=== PATIENT | male | born 2005 | race Caucasian/White ===

== ENCOUNTER 2024-07-03 13:58 | Emergency (ER) | payer OTHER, SELFPAY ==
[2024-07-03 14:06] VITALS: BP 138/88; PULSE 80; RESP 16; TEMP 37.3; O2SAT 98; BMI 20.4
--- NOTE | 2024-07-03 14:48 | ED.WOUNDLAC ---
HPI - Wound/Laceration General Chief Complaint: Laceration/Wound Stated Complaint: L hand deep LAC Time Seen by Provider: 07/03/24 14:01 History of Present Illness HPI narrative: Patient is a 18-year-old young man who [place] when he stumbled catching is left 4th upper extremity digit on some barbed wire. Patient actually fell then [place] and was able climb back out grappling in the dirt. He comes in today with a skin tear/laceration at the PIP digit of the 4th digit left upper extremity well-approximated. He is otherwise uninjured. He has some other scrapes but no other major injuries. He is up-to-date on his tetanus shot. Related Data Home Medications ?Medication ?Instructions ?Recorded ?Confirmed dextroamphetamine-amphetamine 10 10 mg PO DAILY 07/03/24 07/03/24 mg tablet (Adderall) dextroamphetamine-amphetamine ER 15 mg PO DAILY 07/03/24 07/03/24 15 mg 24hr capsule,extend release (Adderall XR) Allergies Allergy/AdvReac Type Severity Reaction Status Date / Time No Known Drug Allergies Allergy Verified 07/03/24 14:05 Review of Systems Status of ROS: Reports: 10 or more systems reviewed and unremarkable except as noted in History and below Exam Narrative: Exam Narrative: EXAM GENERAL: Patient appears comfortable and well. EYES: No scleral icterus. LYMPH: No supraclavicular or cervical lymphadenopathy. SKIN: Skin tear approximately 3 cm in length in a V-shape on the palmar surface PIP 4th digit left upper extremity. EXT: No dependent lower extremity pedal edema. HEART: Regular rate and rhythm with no murmurs, rubs, or gallops. LUNGS: Clear to auscultation bilaterally with no crackles or wheezes. ABD: Soft, non tender, non distended. PSYCH: Good eye contact, speech is not pressured. Const: Vital Signs, click to edit/add: Vital Signs - 24 hr 07/03/24 14:06 Temperature 99.1 F Pulse Rate [Pulse Oximeter] 80 Respiratory Rate 16 Blood Pressure [Ri ght Upper Arm] 138/88 Pulse Oximetry 98 Oxygen Delivery Me thod Room Air Course Course ED Course: Patient seen examined. Wound was aggressively irrigated. Digital block was performed on the 4th digit left upper extremity. I then closed the defect with 4 running 3-0 Ethilon sutures. Will be placing the patient on Augmentin for the next 7 days. I recommended good wound care and follow-up as needed suture removal in approximately 10 days. Vital Signs Vital signs: Initial Vital Signs Temperature 99.1 F 07/03/24 14:06 Temperature Source Temporal Artery Scan 07/03/24 14:06 Pulse Rate 80 07/03/24 14:06 Respiratory Rate 16 07/03/24 14:06 Blood Pressure 138/88 07/03/24 14:06 Blood Pressure Mean 104 07/03/24 14:06 Pulse Oximetry 98 07/03/24 14:06 Oxygen Delivery Method Room Air 07/03/24 14:06 Vital Signs Temperature 99.1 F 07/03/24 14:06 Pulse Rate 80 07/03/24 14:06 Respiratory Rate 16 07/03/24 14:06 Blood Pressure 138/88 07/03/24 14:06 Pulse Oximetry 98 07/03/24 14:06 Oxygen Delivery Method Room Air 07/03/24 14:06 Temperature 99.1 F 07/03/24 14:06 Pulse Rate 80 07/03/24 14:06 Respiratory Rate 16 07/03/24 14:06 Blood Pressure 138/88 07/03/24 14:06 Pulse Oximetry 98 07/03/24 14:06 Oxygen Delivery Method Room Air 07/03/24 14:06 Discharge Plan Discharge Clinical Impression: Laceration Patient Disposition: Home, Self-Care Condition: Stable Instructions: Laceration (ED) Additional Instructions: Augmentin as directed Good wound care with daily dressing changes. Sutures removed in approximately 10 days. Tylenol Motrin Activity Level: No Restrictions Discharge Diet: Regular Prescriptions: No Action dextroamphetamine-amphetamine [Adderall] 10 mg tablet 10 mg PO DAILY dextroamphetamine-amphetamine [Adderall XR] 15 mg capsule,extended release 24hr 15 mg PO DAILY Stand Alone Forms: [facility] Info Instructions
--- OUTSIDE RECORDS SUMMARY | 2024-07-04 17:27 | XMS_ITS | Data Portability ---
Author Organization [facility] Address [address] [place] [address] Care Team Providers Care Insurance Agents Supervisor Name Role Phone GENESIS ALCANTAR Primary Care Provider Assessment No assessment recorded. Plan of Treatment Reminders Order Date Submit Date Provider Last Modified By Organization Details Last Modified Time Details Appointments None recorded. Lab urinalysis , dipstick 2023 024 [facility], [address], [address], [place], [address], 15:30:41 Referral None recorded. Procedures None recorded. Surgeries None recorded. Imaging None recorded. Medication Orders None recorded. Patient TargetsNo targets recorded. Patient Instructions Encounter Date Encounter Id Patient Instructions Last Modified By Organization Details Last Modified Time 08/14/2023 [id number] Hematuria is the setting of perineal trauma last month. He is healing, occ dysuria Cystoscopy shows normal exam and urethra. We spoke about possible long-term issues of stricture/scar formation. He is to come back for any hematuria, poor stream, incomplete emptying, worsening dysuria. Otherwise no specific follow-up is needed. [email or web address] Not available 08/14/2023 11:57:08 Reason for Referral None Reported. Results Created Date Observation Date Name Description Value Unit Range Abnormal Flag Note LastModifiedBy Organization Detail LastModifiedTime 08/14/19 24 08/14/2023 [facility] WITHO UT MICRO COON RAPID S color-status YELLOW yellow Not Available [facility] [address], [place], [address], 08/14/2023 15:30:41 08/14/19 24 08/14/2023 UA WITHO UT MICRO COON RAPID S clarity-stat us CLEAR clear Not Available [facility] [address], [place], [address], 08/14/2023 15:30:41 08/14/19 24 08/14/2023 UA WITHO UT MICRO COON RAPID S glucose-stat us NEGATI VE mg/dL negati ve Not Available [facility] [address] [place] [address], [place], [address], 08/14/2023 15:30:41 08/14/19 24 08/14/2023 UA WITHO UT MICRO COON RAPID S bilirubin-ur ine NEGATI VE negati ve Not Available [facility] [address] [place] [address], [place], [address], 08/14/2023 15:30:41 08/14/19 24 08/14/2023 UA WITHO UT MICRO COON RAPID S ketones-stat us NEGATI VE mg/dL negati ve Not Available [facility] [address] [place] [address], [place], [address], 08/14/2023 15:30:41 08/14/19 24 08/14/2023 UA WITHO UT MICRO COON RAPID S SG-status 1.030 1.00-1 .[address] [facility] [address] [place] [address], [place], [address], 08/14/2023 15:30:41 08/14/19 24 08/14/2023 UA WITHO UT MICRO COON RAPID S pH-status 5.5 5.00-8 .[address] [facility] [address] [place] [address], [place], [address], 08/14/2023 15:30:41 08/14/19 24 08/14/2023 UA WITHO UT MICRO COON RAPID S protein-stat us NEGATI VE mg/dL negati ve Not Available [facility] [address], [place], [address], 08/14/2023 15:30:41 08/14/19 24 08/14/2023 UA WITHO UT MICRO COON RAPID S urobilinogen -status 0.2 E.U./D L E.U./ dL 0.2 E.U./d L Not Available [facility] [address] [place] [address] [address], [place], [address], 08/14/2023 15:30:41 08/14/19 24 08/14/2023 UA WITHO UT MICRO COON RAPID S nitrites-sta tus NEGATI VE negati ve Not Available [facility] [address] [place] [address], [place], [address], 08/14/2023 15:30:41 08/14/19 24 08/14/2023 UA WITHO UT MICRO COON RAPID S blood-urine NEGATI VE negati ve Not Available [facility] [address] [place] [address], [place], [address], 08/14/2023 15:30:41 08/14/19 24 08/14/2023 UA WITHO UT MICRO COON RAPID S leuko-status NEGATI VE negati ve Not Available [facility] [address] [place] [address], [place], [address], 08/14/2023 15:30:41 08/14/19 24 08/14/2023 UA WITHO UT MICRO COON RAPID S specimen type VOIDED Not Available [facility] [address] [place] [address], [place], [address], 08/14/2023 15:30:41 08/14/19 24 08/14/2023 UA WITHO UT MICRO COON RAPID S performed by ROSE MARIE Kent Not Available [facility] [address] [place] [address], [place], [address], 08/14/2023 15:30:41 08/14/19 24 08/14/2023 UA WITHO UT MICRO COON RAPID S total urine volume (mL) 30 /mL ----- ----- ----- ----- ----- ----- ----- ----- ----- ----- ----- ----- ----- ----- ---- *Plejessica benavides note the follo wing minim um quant ities for addit ional urine testi ng: - Atypi cals: 3 mL - Cytol ogy: 20 mL - GC/CH : 2 mL - FISH: 30 mL - Atypi cals w/ GC/CH : 5 mL - Cytol ogy PLUS FISH: 50 mL - Urine Cultu re: 3 mL ----- ----- ----- ----- ----- ----- ----- ----- ----- ----- ----- ----- ----- ----- ---- This lab resul t is being provi ded to you and your provi gera at the same time in compl iance with the Centu ry Cures Act. Your provi gera may not have had time to revie w and make recom menda tions based on the resul t. [place] muniz allow up to one week for provi gera revie w. Not Available [facility] [address] [place] [address] [address], [place], [address], 08/14/2023 15:30:41 Result Notes None recorded. Problems No Known Problems Procedures Surgical History Date Name Laterality Status Provider Name and Address Organization Details Recorded Time 08/14/2023 Cystoscopy - male completed Tho Salgado MD [address], [place], [address], [facility] 08/14/2023 11:56:08 Imaging Results None recorded. Procedure Notes None recorded. Medical Equipment None Reported. Allergies No known drug allergies Medications Name Sig Start Date Stop Date Status Note LastModified by Organization Details LastModified Time cephalexin 250 mg capsule TAKE 3 CAPSULES BY MOUTH TWICE DAILY FOR 10 DAYS 08/13 completed Not Available Not Available Not Available dextroamphe tamine-amph etamine 10 mg tablet TAKE 1 TABLET BY MOUTH IN THE AFTERNOON active Not Available Not Available No t Available doxycycline hyclate 100 mg tablet TAKE 1 TABLET (100MG) BY ORAL ROUTE 2 TIMES PER DAY FOR 10 DAYS 08/13 completed Not Available Not Available Not Available Adderall XR 15 mg capsule,ext ended release 15mg 1/day active Not Available Not Available No t Available Vitals Date Recorded Body height Body weight Body mass index (BMI) Provider Name and Address Organization Details Last Updated DateTime 08/14/2023 177.8 cm 94400.27880 25759 g 20.9 kg/m2 Not Available Health Note 08/14/2023 11:00:36 Social History Question Answer Notes LastModified by Organizat ion Details LastModified Time Tobacco Smoking Status Never Smoker Not Available Health Note 08/14/2023 10:58:08 What Is Your Level Of Caffeine Consumption? Occasional [email or web address] Information not available 08/14/2023 How Much Tobacco Do You Chew? None [email or web address] Information not available 08/14/2023 What Was The Date Of Your Most Recent Tobacco Screening? 08/14/2023 [email or web address] Information not available 08/14/2023 What Is Your Relationship Status? Single [email or web address] Information not available 08/14/2023 Are You Sexually Active? Yes [email or web address] Information not available 08/14/2023 How Many Days In The Past Year Have You Consumed 5 Or More Drinks? 0 [email or web address] Information no t available 08/14/2023 Sex: Unknown Functional Status Question Answer Note LastModified by [employer] Details LastModified Time Do you use any illicit or recreational drugs? No [email or web address] Information not available 08/14/2023 What is your level of alcohol consumption? None [email or web address] Information not available 08/14/2023 Do you or have you ever used smokeless tobacco? Never used smokeless tobacco [email or web address] Information not available 08/14/2023 Do you or have you ever used e-cigarettes or vape? Never used electronic cigarettes [email or web address] Information not available 08/14/2023 Mental Status None recorded. Family History Nothing Reported. Medical History Condition Response High Blood Pressure N Kidney Stones N Depression N Sexually Transmitted Infection N Cancer N Bleeding Disorder N Lung Disease N GERD/Acid Reflux N High Cholesterol N Diabetes N Heart Disease N Immunizations Vaccine Type Date Status Note Provider Nam e and Address Organization Details Recorded Time SARS-COV-2 (COVID-19) vaccine, UNSPECIFIED 3 completed Not Available Health Note 08/14/2023 10:58:11 influenza, unspecified formulation 3 completed Not Available Health Note 08/14/2023 10:58:11 Past Encounters Encounter ID Performer Location Encounter Start Date Encounter Closed Date Diagnosis/Indication Diagnosis SNOMED-CT Code Diagnosis ICD10 Code Diagnosis Note [id number] Tho Salgado MD [facility] [place] [address] [place] [address] 08/14/2023 10:59:21 08/14/2023 12:44:49 Haroon hematuria [id number] R31.0 New Health Concerns Section Related Observation LastModified by Organization Detai ls LastModified Time None Recorded Concern Status LastModified by Organization Details LastModified Time None Recorded Advance Directives Directive None Recorded Payers Insurance Date Sequence Insurance Name Policy Number Policy Tatum Covered Member ID Tatum Member ID Guarantor Name 09/03/2023 1 [facility] [id number] Rosemary Li [id number] Rosemary Li Notes Date Note Type Note Provider Name and Address Organization Details Recorded Time 08/14/2023 text/html 08/14/23: referre d to Urology for perineal trauma from Urgency room, Noted hematuria. He was NOT evaluated by urology at that time.Fell off a michael rack (was walking across them)Perineal bruising, and hematuria. Better nowOcc referred pain in the urethra on initiation of voiding but then goes awayGood stream. Tho Salgado MD [address], [place], [address], [facility] 08/14/2023 11:57:20
--- OUTSIDE RECORDS SUMMARY | 2024-07-04 17:28 | XMS_ITS ---
Author Organization [facility] Address [address] [place] [address] Care Team Providers Care Network Planner Name Role Phone Magda Jacobson Primary Care Provider Anamaria Hamm [phone] REASON FOR VISIT ADHD refill Medications Medication SIG (Take, Route, Fr equency, Duration) Notes Start Date End Date Status Adderall XR 15 MG 1 capsule in the mor krysta Orally Once a day for 90 days 08/12/2023 Active Adderall 10 MG 1 tablet Orally in t he afternoon for 90 days 08/12/2023 Active Encounters Encounter Location Date Provider Diagnosis [address] [address] 08/12/2023 Anamaria Hamm ADHD (attention deficit hyperactivity disorder) F90.9 Assessments Encounter Date Diagnosis (ICD Code) Assessment Notes Treatment Notes Treatment Clinical Notes Section Notes 08/12/2023 ADHD (attention deficit hyperactivity disorder) (ICD-10 - F90.9) Plan Of Treatment Medication Medication Name Sig Start Date Stop Date Notes Adderall XR 15 MG 1 capsule in the mor krysta Orally Once a day for 90 days 08/12/2023 Adderall 10 MG 1 tablet Orally in t he afternoon for 90 days 08/12/2023 Progress Notes * Rosemary SARGENT RDOB: [birth year] (17 yo M)Acc No.[id number]:08/12/2023 Patient: Dave Rosemary MOLINA :2005 A ge:17 Y S ex:Male Address:[address] [place], [place] [address], [place] [address] * Refills Refill Adderall XR Capsule Extended Release 24 Hour, 15 MG, Orally, 90, 1 capsule in the morning, Once a day, 90 days, Refills=0 Refill Adderall Tablet, 10 MG, Orally, 90 Tablet, 1 tablet, in the afternoon, 90 days, Refills=0 * true * Date: Generated for Ruben stern/Rosalinda/Cassandra on: 0 07/04/2024 05:28 PM CDT
--- OUTSIDE RECORDS SUMMARY | 2024-07-04 17:29 | XMS_ITS | Patient Health Record ---
Author Organization [facility] Address [address] [place] [address] Care Team Providers Care Tower Loader Operator Name Role Phone Magda Jacobson Primary Care Provider [phone] Anamaria Hamm Unavailable [phone] Stefany Miller Unavailable [phone] Elisabeth Nichols Unavailable [phone] Allergies No Known Allergies Reason For Referral No Information Medications Medication SIG (Take, Route, Frequency, Duration) Notes Start Date End Date Status Adderall XR 15 MG 1 capsule in the mor krysta Orally Once a day for 30 days 10/25/2022 Not-Taking Adderall 10 MG 1 tablet Orally in t he afternoon for 60 days 10/21/2023 Active Adderall XR 15 MG 1 capsule in the mor krysta Orally Once a day for 60 days 10/21/2023 Active Amphetamine-Dextroamphet ER 15 MG 1 capsule in the morning Orally Once a day for 90 days 02/12/2024 Active Adderall XR 15 MG 1 capsule in the mor krysta Orally Once a day for 30 days 11/24/2022 Not-Taking Immunizations Vaccine Route Administration Date Status Comme nts DTaP, under 7 yrs (Infanrix) Unknown 01/24/2006 Administered DTaP-Hep B-Polio vaccine, (Pediarix) Unknown 04/22/2005 Administered DTaP-Hep B-Polio vaccine, (Pediarix) Unknown 07/24/2005 Administered DTaP-IPV vaccine, 4-6 yrs (Kinrix) Unknown 11/28/2009 Administered Flu vaccine (FluLaval), quadrivalent IM Intramuscular 01/19/2019 Administered Flu vaccine (FluLaval), quadrivalent IM Intramuscular 01/04/2020 Administered Flu vaccine (FluLaval), trivalent IM Intramuscular 02/12/2024 Administered Flu vaccine (FluMist) quadrivalent, intranasal Unknown 11/22/2008 Administered Flu vaccine (FluMist) quadrivalent, intranasal NS Nasal 10/30/2020 Administered Flu vaccine (FluMist) quadrivalent, intranasal NS Nasal 11/06/2021 Administered Flu vaccine (FluMist) quadrivalent, intranasal NS Nasal 11/11/2022 Administered Flu vaccine (Fluzone) >3 yrs, quadrivalent Unknown 12/15/2007 Administered Flu vaccine (Fluzone) >3 yrs, quadrivalent Unknown 01/14/2009 Administered Hemophilus B vaccine, (ActHIB) Unknown 2004 Administered Hemophilus B vaccine, (ActHIB) Unknown 04/22/2005 Administered Hemophilus B vaccine, (ActHIB) Unknown 07/24/2005 Administered Hemophilus B vaccine, (ActHIB) Unknown 01/24/2006 Administered Hep B, adolescent or pediatric Unknown 2004 Administered Hepatitis A pediatric, 2-dose (Havrix) Unknown 2005 Administered Hepatitis A pediatric, 2-dose (Havrix) Unknown 06/02/2006 Administered Hepatitis B, vaccine pediatric 3-dose (Engerix-B) Unknown 2004 Administered Human Papilloma Virus, (HPV9) Gardasil 9 IM Intramuscular 11/12/2016 Administered Human Papilloma Virus, (HPV9) Gardasil 9 IM Intramuscular 06/25/2018 Administered Meningococcal, (Menveo) tetravalent IM Intramuscular 11/12/2016 Administered Meningococcal, (Menveo) tetravalent IM Intramuscular 11/11/2022 Administered MMR vaccine, live Unknown 2005 Administered MMR vaccine, live Unknown 11/22/2008 Administered Pneumococcal vaccine, 7 valent (Prevnar 7) Unknown 2004 Administered Pneumococcal vaccine, 7 valent (Prevnar 7) Unknown 2004 Administered Pneumococcal vaccine, 7 valent (Prevnar 7) Unknown 04/22/2005 Administered Pneumococcal vaccine, 7 valent (Prevnar 7) Unknown 04/22/2005 Administered Pneumococcal vaccine, 7 valent (Prevnar 7) Unknown 07/24/2005 Administered Pneumococcal vaccine, 7 valent (Prevnar 7) Unknown 2005 Administered Polio vaccine, (IPOL) Unknown 2004 Administered SARSCOV2 vaccine, (Pfizer) 12-17 original formulation Unknown 06/30/2020 Administered SARSCOV2 vaccine, (Pfizer) 12-17 original formulation Unknown 07/21/2020 Administered Tdap (tetanus diptheria pertussis), over 7 yrs (Boostrix) IM Intramuscular 11/12/2016 Administered Tdap (tetanus diptheria pertussis), over 7 yrs (Boostrix) IM Intramuscular 05/22/2023 Administered Varicella, (Varivax) Unknown 10/12/2012 Administered Varicella, (Varivax) SC Subcutaneous 03/30/2015 Administer ed Problems Problem Type SNOMED Code ICD Code Onset Dates Problem Status W/U Status Risk Notes Problem [id number] ADHD (attention deficit hyperactivity disorder) (F90.9) Active confirmed Vital Signs Heart Rate 102 /min 07/15/2023 Temperature 98.4 degrees Fahrenheit 07/15/2023 Blood pressure diastolic 62 mm Hg 02/12/2024 Weight-kg 66.86 kg 07/15/2023 Blood pressure systolic 130 mm Hg 02/12/2024 Weight 153 lbs 02/12/2024 Encounters Encounter Location Date Provider Diagnosis [address] [address] 07/15/2023 Stefany Miller Urethral injury S37.30XA [address] [address] 02/12/2024 Elisabeth Nichols ADHD (attention deficit hyperactivity disorder) F90.9 and Influenza vaccine needed Z23 [address] [address] 08/12/2023 Anamaria Hamm ADHD (attention deficit hyperactivity disorder) F90.[address] [address] 10/21/2023 Elisabeth Nichols ADHD (attention deficit hyperactivity disorder) F90.9 Assessments Encounter Date Diagnosis (ICD Code) Assessment Notes Treatment Notes Treatment Clinical Notes Section Notes 07/15/2023 Urethral injury (ICD-10 - S37.30XA) Given blood in ejaculate and urine concern for urethral trauma. Recommend Rosemary go to the ED for evaluation this evening- he can choose an adult ED if preferred. 08/12/2023 ADHD (attention deficit hyperactivity disorder) (ICD-10 - F90.9) 10/21/2023 ADHD (attention deficit hyperactivity disorder) (ICD-10 - F90.9) 02/12/2024 ADHD (attention deficit hyperactivity disorder) (ICD-10 - F90.9) 02/12/2024 Influenza vaccine needed (ICD-10 - Z23) 07/15/2023 Other Did you know that a copy of the visit summary is available on the patient portal? You can view this summary as well as test results, immunizations, measurements, and vital signs. You may also message your physician through the patient portal for non-urgent matters. If you need help accessing your portal account please call our office at [phone] [place] or [phone] [place]. Call our office 24 hours a day if you need medical advice from triage staff. If labs were ordered today and not finalized at the time of your visit, they will be visible on the patient portal when they are completed. Reach out to your primary physician if you have questions about these results. Someone will contact you if any new results indicate there should be a change in your treatment or if we need to discuss your results. If x-rays were done today they will be transmitted to [facility] radiology and we will review the reading. If the reading differs from the initial reading in clinic, or there should be a change in your treatment, someone will contact you to discuss this further. You can easily schedule appointments on-line through our website at [employer]. Quickly search sick visit availability with individual physicians or our Sick Visit [place] or [facility] as well as available times for physicals. Thank you for choosing [facility] for your care. One way we continue to improve is by listening to families and patients. If you receive a survey following your visit, please take time to complete it and share your experience with us. Our goal is to provide excellent care and a great experience. Plan Of Treatment Pending Test Test Name Order Date Vaccine Admin with Counseling, 1st compo nent 11/12/2016 Insurance Providers Payer Name Payer Address Payer Phone Subscriber Number Group Number Insured Name Patient Relationship to Insured Coverage Start Date Coverage End Date [employer] ([employer]) [address] [place] [phone] [id number] Rosemary Li Self - patient is the insured Medical (General) History Medical History History ICD Code ADHD Submucous cleft palate SPD Surgical History Surgery Date(Month/Year) Cleft palate Hospitalization History Reason Date(Month/Year) Cleft palate
--- OUTSIDE RECORDS SUMMARY | 2024-07-04 17:32 | XMS_ITS ---
Author Organization [facility] Address [address] [place] [id number] Care Team Providers Care Recreation Aide Name Role Phone Magda Jacobson Primary Care Provider [phone] Elisabeth Nichols [phone] REASON FOR VISIT ADHD refill Medications Medication SIG (Take, Route, Fr equency, Duration) Notes Start Date End Date Status Adderall 10 MG 1 tablet Orally in t he afternoon for 60 days 10/21/2023 Active Adderall XR 15 MG 1 capsule in the mor krysta Orally Once a day for 60 days 10/21/2023 Active Encounters Encounter Location Date Provider Diagnosis [address] [phone] 10/21/2023 Elisabeth Nichols ADHD (attention deficit hyperactivity disorder) F90.9 Assessments Encounter Date Diagnosis (ICD Code) Assessment Notes Treatment Notes Treatment Clinical Notes Section Notes 10/21/2023 ADHD (attention deficit hyperactivity disorder) (ICD-10 - F90.9) Plan Of Treatment Medication Medication Name Sig Start Date Stop Date Notes Adderall 10 MG 1 tablet Orally in t he afternoon for 60 days 10/21/2023 Adderall XR 15 MG 1 capsule in the mor krysta Orally Once a day for 60 days 10/21/2023 Progress Notes * Rosemary SARGENT RDOB: [birth year] (18 yo M)Acc No.[id number]:10/21/2023 Patient: Annalisa SOLOMONan Antoine :2005 A ge:18 Y S ex:Male Address:[address] [place] [address], [place] [address] * Refills Refill Adderall XR Capsule Extended Release 24 Hour, 15 MG, Orally, 60 Capsule, 1 capsule in the morning, Once a day, 60 days, Refills=0 Refill Adderall Tablet, 10 MG, Orally, 60 Tablet, 1 tablet, in the afternoon, 60 days, Refills=0 * true * Date: Generated for Ruben stern/Rosalinda/Odiliaitting on: 0 07/04/2024 05:31 PM CDT
--- OUTSIDE RECORDS SUMMARY | 2024-07-04 17:33 | XMS_ITS | Clinical Summary ---
Author Organization [employer] [facility] Address [address] [place] [id number] Care Team Providers Care Dyer And Washer Name Role Phone Elisabeth Nichols MD Primary Care Provider Allergies No known active allergies Medications Adderall XR 15 mg Extended-Releas e capsule 1 capsule in the morning Orally Once a day for 90 days 10/25/2022 Active dextroamphetami ne-amphetamine (ADDERALL) 5 mg tablet 1 or 1 1/2 tablets Orally after school as needed for 30 days 11/19/2022 Active Social History Tobacco Use Types Packs/Day Years Used Date Smoking Tobacco: Never Smokeless Tobacco: Never Tobacco Cessation:Counseling Given: Not Answered Sex and Gender Information Value Date Recorded Sex Assigned at Not on file Legal Sex Male 8:59 AM CDT Gender Identity Other 07/16/2023 9:01 AM CDT Sexual Orientation Not on file Obstetrics History Last Filed Vital Signs Vital Sign Reading Time Taken Comments Blood Pressure 138/91 07/16/2023 10:48 AM CDT Pulse 92 07/16/2023 10:48 AM CDT Temperature 36.9 C (98.4 F) 07/16/2023 10:48 AM CDT Respiratory Rate 16 07/16/2023 10:48 AM CDT Oxygen Saturation 98% 07/16/2023 10:48 AM CDT Inhaled Oxygen Concentration - - Weight 66.2 kg (146 lb) 07/16/2023 10:48 AM CDT Height 180.3 cm (5' 11) 07/16/2023 10:48 AM CDT Body Mass Index 20.36 07/16/2023 10:48 AM CDT Body Mass Index Percentile 22.40% 07/16/2023 10: 48 AM CDT Growth Chart: CDC (Boys, 2-2 0 Years) Plan of Treatment Health Maintenance Due Date Last Done Comments Well Child Check for age 3-20 09/18/2007 Tdap 10/19/2015 Depression screening for age 12+ 2016 HIV for age 15-65 10/19/2019 HPV series for age 9-26 (1 - 3-dose series) 10/19/2019 HPV series for age 9-26 (1 - 3-dose series) 10/19/2019 BMI (ht and wt on same day) for age 18+ 2022 Hepatitis C screening for ag e 18-79 2022 COVID-19 vaccine series ( season) 2023 07/21/2020, 06/30/2020 Influenza Vaccine (Season Ended) 2024 Meningococcal series for age 11-21 Aged Out No longer eligible b ased on patient's age to complete this topic Pneumococcal series for age 6-49 Aged Out No longer eligible b ased on patient's age to complete this topic Care Teams Dyer And Washer Relationship Specialty Start Date End Date Elisabeth Nichols MD [address], [place] [id number] PCP - General Pediatric 07/16/23
== END 2024-07-03 15:04 | disposition home or self-care (01) ==
PROVIDERS: Emergency Provider Internal Medicine
DX: S61.215A Laceration without foreign body of left ring finger without damage to nail, initial encounter (principal); W26.9XXA Contact with unspecified sharp object(s), initial encounter
CPT/HCPCS: 12001; 99283